=== PATIENT | female | born 1985 | race Caucasian/White ===

== ENCOUNTER 2021-03-19 12:12 | Emergency (ER) | payer OTHER ==
[~2021-03-19] VITALS: Ht 152.4 cm; Wt 98.1 kg
[2021-03-19 12:37] VITALS: BP 152/108
--- NOTE | 2021-03-19 12:42 | PHYS DOC ---
Adult General Chief Complaint Chief Complaint: ABDOMINAL PAIN HPI HPI Patient is a 36-year-old female presenting for left lower quadrant pain. Patient was seen at our [place] urgent care upstairs and had work-up that consisted of urinalysis and negative test. She has history of known ovarian cysts none of which have ruptured in the past. She is concerned it might be recurrent pain. Patient was given Toradol shot and antiemetics with complete resolution of pain and plans were made for her to obtain a pelvic ultrasound. There were issues with insurance approving her nonemergent pelvic ultrasound and so, it was recommended she come down to the ER to see if we would do it. On evaluation, patient asymptomatic Review of Systems Review of Systems Fourteen body systems of review of systems have been reviewed. See HPI for pertinent positives and negative responses, other otto all other systems are negative, non-pertinent or non-contributory Physical Exam Physical Exam Constitutional: Well developed, well nourished, no acute distress, non-toxic appearance. HENT: Normocephalic, atraumatic, bilateral external ears normal, oropharynx moist, no oral exudates, nose normal. Eyes: PERRLA, EOMI, conjunctiva normal, no discharge. Neck: Normal range of motion, no tenderness, supple, no stridor. Cardiovascular: Heart rate regular, sinus rhythm, no murmurs rubs or gallops Lungs & Thorax: Bilateral breath sounds clear to auscultation Abdomen: Bowel sounds normal, soft, left flank plain, no rebound or guarding present, no masses, no pulsatile masses. Nonsurgical abdomen, no peritoneal signs Skin: Warm, dry, no erythema, no rash. Back: No tenderness, no CVA tenderness. Extremities: No tenderness, no cyanosis, no clubbing, ROM intact, no edema. Neurologic: Alert and oriented X 3, grossly normal motor & sensory function, no focal deficits noted. Psychologic: Affect normal, judgement normal, mood normal. EKG EKG [] Radiology/Procedures Radiology/Procedures [] Heart Score C/O Chest Pain: No Risk Factors: Risk Factors: DM, Current or recent (<one month) smoker, HTN, HLP, family history of CAD, obesity. Risk Scores: Risk Factors: DM, Current or recent (<one month) smoker, HTN, HLP, family history of CAD, obesity. Course & Med Decision Making Course & Med Decision Making ABCs unremarkable. I disclosed entirety of ER findings and discussed most likely diagnosis of left-sided abdominal pain of unknown etiology. Other diagnoses were discussed with patient such as ruptured ovarian cyst, ovarian torsion and other intra-abdominal abnormalities but all deemed less likely causes of miller ryder's presentation. Patient well-appearing, ambulatory, hemodynamically stable and asymptomatic on arrival. I discussed limited utility in performing nonemergent ultrasound in ER setting and patient agreed. As such, original plan of care for nonemergent outpatient ultrasound discussed at length with need for close outpatient follow-up to review today's ER visit stressed. Strict return precautions were also discussed at length with good understanding by patient. Patient voiced understanding and agreement with the plan. Patient knows to come back for repeat evaluation if concerning signs or symptoms present prior to outpatient follow-up. Hemodynamically stable, ambulatory and well-appearing at time of disposition. Dragon Disclaimer Dragon Disclaimer This electronic medical record was generated, in whole or in part, using a voice recognition dictation system. Departure Departure: Impression: Primary Impression: Abdominal pain Additional Impression: History of ovarian cyst Disposition: 01 HOME / SELF CARE / HOMELESS Condition: GOOD Referrals: PCP,UNKNOWN (PCP) Additional Instructions: You have been evaluated in the Emergency Department today for abdominal pain. Your evaluation was not suggestive of any emergent condition requiring medical intervention at this time. However, some abdominal problems make take more time to appear. Therefore, it is important for you to watch for any new symptoms or worsening of your current condition. Your vitals and physical examination were nonconcerning for any emergent or surgical issues. I agree with previous guidance for close outpatient follow-up and nonemergent pelvic ultrasound to be performed Return to the Emergency Department if you experience worsening pain, persistent fevers greater than 100.4, recurrent vomiting, blood in vomit, blood in stool, dark tarry stool, chest pain, difficulty breathing, or any other concerning symptoms. Problem Qualifiers MARKOS HOFF DO Mar 19, 2021 12:42
== END 2021-03-19 12:47 | disposition home or self-care (01) ==
LOC: ER 12:12
DX: R10.32 Left lower quadrant pain (principal)
CPT/HCPCS: 99281; 99283

== ENCOUNTER 2021-04-15 16:25 | Emergency (ER) | payer OTHER ==
[~2021-04-15] VITALS: Ht 152.4 cm; Wt 98.1 kg
[2021-04-15 16:36] VITALS: BP 136/81
--- NOTE | 2021-04-15 16:58 | PHYS DOC ---
Past History Past Surgical History: No Surgical History (KHAI MORRELL DO) Alcohol Use: None (KHAI MORRELL DO) General Adult EDM: Chief Complaint: FLANK PAIN-abdomen pain HPI: HPI: 36-year-old female presents with left-sided abdominal pain. She has been having pain today and yesterday. She states it is tender to palpation. The pain is a mild to moderate cramping sensation. No skin findings. No nausea, vomiting. She denies dysuria, urinary frequency, change in vaginal discharge, constipation, or diarrhea. She had pain similar to this about a month ago and was evaluated for possible ovarian cyst. Her ultrasound was negative at that time. Her pain went away on its own. No history of abdominal surgery other than two C-sections. She denies fever or chills. (KHAI MORRELL DO) Review of Systems: Review of Systems: Constitutional: Denies fever or chills Eyes: Denies change in visual acuity HENT: Denies nasal congestion or sore throat Respiratory: Denies cough or shortness of breath Cardiovascular: Denies chest pain or edema GI: Left-sided abdominal pain. Denies nausea, vomiting, bloody stools or diarrhea : Denies dysuria Musculoskeletal: left flank pain Integument: Denies rash Neurologic: Denies headache, focal weakness or sensory changes Endocrine: Denies polyuria or polydipsia Lymphatic: Denies swollen glands Psychiatric: Denies depression or anxiety (KHAI MORRELL DO) Current Medications: Current Meds: Current Medications Medications (Trade) Dose Ordered Sig/Surekha Start Time Stop Time Status Last Admin Dose Admin Sodium Chloride 1,000 ml @ 1,000 mls/hr 1X ONCE 04/15/21 17:00 04/15/21 17:59 UNV (KHAI MORRELL DO) Allergies: Allergies: Allergies Coded Allergies Type Severity Reaction Last Updated Verified No Known Drug Allergies 03/19/21 No (KHAI MORRELL DO) Physical Exam: PE: Constitutional: Well developed, well nourished, morbidly obese, no acute distress, non-toxic appearance. [] HENT: Normocephalic, atraumatic, bilateral external ears normal, oropharynx moist, no oral exudates, nose normal. [] Eyes: PERRLA, EOMI, conjunctiva normal, no discharge. [] Neck: Normal range of motion, no tenderness, supple, no stridor. [] Cardiovascular: Heart rate regular rhythm, no murmur [] Lungs & Thorax: Bilateral breath sounds clear to auscultation [] Abdomen: Bowel sounds normal, soft, left-sided tenderness, no masses, no pulsatile masses. [] Skin: Warm, dry, no erythema, no rash. [] Back: No tenderness, mild left CVA tenderness. [] Extremities: No tenderness, no cyanosis, no clubbing, ROM intact, no edema. [] Neurologic: Alert and oriented X 3, normal motor function, normal sensory functi on, no focal deficits noted. [] Psychologic: Affect normal, judgement normal, mood normal. [] (KHAI MORRELL DO) Current Patient Data: Vital Signs: Vital Signs Date Time Temp Pulse Resp B/P (MAP) Pulse Ox O2 Delivery O2 Flow Rate FiO2 04/15/21 16:36 97.9 102 18 136/81 (99) 95 (KHAI MORRELL DO) Labs: CBC hemoglobin white count 8.1 hemoglobin 13.2 platelets 267 electrolytes sodium 139 potassium 3.9102 chloride 24 CO2 10 BUN 0.7 creatinine glucose 105 UA negative see formal report when available (STEVEN GUERRERO MD) EKG: EKG: [] (KHAI MORRELL DO) Radiology/Procedures: Radiology/Procedures: [] (KHAI MORRELL DO) Radiology/Procedures: [place] [address] IMAGING REPORT Signed PATIENT: SULLY DINERO AACCOUNT: [id number] : 1985 LOCATION: ER AGE: 36 SEX: F EXAM STATUS: REG ER ORD. PHYSICIAN: KHAI MORRELL DO REASON: left flank pain PROCEDURE: CT ABDOMEN PELVIS WO CONTRAST Exam Date: 04/15/2021 5:[address] ABDOMEN+PELVIS WO Indication: Reason: left flank pain / Spl. Instructions: / History: . TECHNIQUE: CT examination of the abdomen and pelvis was performed without oral or intravenous contrast. One or more of the following dose reduction techniques were utilized: *Automated exposure control (AEC) *Adjustment of mA and/or kV according to patient size *Use of iterative reconstruction technique *CT scan done according to ALARA, or ALARA/IMAGE GENTLY FINDINGS: The visualized lung bases are clear. There is diffuse fatty infiltration of the liver. The liver, gallbladder, spleen, pancreas, and adrenal glands are otherwise normal. The kidneys are normal bilaterally. No hydronephrosis or hydroureter is seen. No urinary tract calculi are seen. Urinary bladder is normal in appearance. There is no bowel obstruction or inflammation. The appendix is normal. No significant atherosclerotic calcifications are seen. No lymphadenopathy or ascites is seen. Degenerative changes are seen in the spine. IMPRESSION: Normal appearance of the kidneys and bladder. No hydronephrosis or hydroureter. No urinary tract calculi. Electronically signed by: Joni Villegas MD (04/15/2021 5:56 PM) [facility] DICTATED AND SIGNED BY: JONI VILLEGAS MD DATE: 04/15/211749 CC: KHAI MORRELL DO; PCP,UNKNOWN ~MTH0 0 (STEVEN GUERRERO MD) Heart Score: C/O Chest Pain: N/A Risk Factors: Risk Factors: DM, Current or recent (<one month) smoker, HTN, HLP, family history of CAD, obesity. Risk Scores: Score 0 - 3: 2.5% MACE over next 6 weeks - Discharge Home Score 4 - 6: 20.3% MACE over next 6 weeks - Admit for Clinical Observation Score 7 - 10: 72.7% MACE over next 6 weeks - Early Invasive Strategies (KHAI MORRELL DO) Course & Med Decision Making: Course & Med Decision Making Pertinent Labs and Imaging studies reviewed. (See chart for details) The patient's labs are pending. Her CT scan is pending. I am signing the patient out to Dr. Guerrero at 1748. He will determine the patient's final disposition. [] (KHAI MORRELL DO) Course & Med Decision Making See Dr. Morrell chart for details prior shift change.. Recently moved from [place] to [place], she is dependent. No family history of ulcerative colitis or other forms of colitis. No history of irritable bowel syndrome. Did have an uncle that had hepatitis and alcohol l iver disease. No specific ill contacts. No history immunosuppression. Normally healthy. Has been assigned to [place] no recent travel overseas. Impression: 1. Abdomen and Lt flank Pain 2. Constipation Pt. to stay on clear fluid diet x 48 hrs. No solids or milk products. Must allow bowel rest. Follow up with primary and review ED work up and any pending labs. Return if if any concerns. (STEVEN GUERRERO MD) Tnoie Disclaimer: Tonie Disclaimer: This electronic medical record was generated, in whole or in part, using a voice recognition dictation system. (KHAI MORRELL DO) Departure Departure: Referrals: PCP,UNKNOWN (PCP) Tonie Disclaimer This chart was dictated in whole or in part using Voice Recognition software in a busy, high-work load, and often noisy Emergency Department environment. It may contain unintended and wholly unrecognized errors or omissions. (STEVEN GUERRERO MD) KHAI MORRELL DO Apr 15, 2021 16:58 STEVEN GUERRERO MD Apr 15, 2021 18:21
[2021-04-15] MEDS ORDERED: IV NORMAL SALINE 1,000ML 1,000 ML IV ONE (17:00)
[2021-04-15] MEDS ORDERED: IOHEXOL 300 MG/ML 75 ML VIAL. IV ONE (17:15)
[2021-04-15] MEDS ORDERED: CONTRAST GIVEN. MC PRN (17:15)
[2021-04-15 17:45] LABS: U PREG PATIENT NEGATIVE (NEG)
[2021-04-15 17:52] LABS: BASO # 0.1 x10^3/uL (0.0-0.2); BASO % 1 % (0-3); EOS # 0.2 x10^3/uL (0.0-0.7); EOS % 2 % (0-3); HEMATOCRIT 38.8 % (36.0-47.0); HEMOGLOBIN 13.2 g/dL (12.0-15.5); LYMPH # 3.3 x10^3/uL (1.0-4.8); LYMPH % 41 % (24-48); MEAN CORPUSCULAR HEMOGLOBIN 30 pg (25-35); MEAN CORPUSCULAR HGB CONC 34 g/dL (31-37); MEAN CORPUSCULAR VOLUME 88 fL (79-100); MONO # 0.5 x10^3/uL (0.0-1.1); MONO % 7 % (0-9); NEUT % 49 % (31-73); PLATELET COUNT 267 x10^3/uL (140-400); RED BLOOD COUNT 4.42 x10^6/uL (3.50-5.40); WHITE BLOOD COUNT 8.1 x10^3/uL (4.0-11.0)
[2021-04-15 17:57] LABS: CALCIUM 9.5 mg/dL (8.5-10.1); CREATININE 0.7 mg/dL (0.6-1.0); GFR 95.2; POTASSIUM 3.9 mmol/L (3.5-5.1)
[2021-04-15 17:58] LABS: BILIRUBIN,URINE NEG (NEG); CLARITY,URINE HAZY; COLOR,URINE YELLOW; GLUCOSE,URINE NEG (NEG); NITRITE,URINE NEG (NEG); RBC,URINE 0 /HPF (0-2); UROBILINOGEN,URINE 0.2 mg/dL (0.2 mg/dL)
--- NOTE | 2021-04-15 17:58 | RAD ---
Exam Date: 04/15/2021 5:[address] ABDOMEN+PELVIS WO Indication: Reason: left flank pain / Spl. Instructions: / History: . TECHNIQUE: CT examination of the abdomen and pelvis was performed without oral or intravenous contra st. One or more of the following dose reduction techniques were utilized: *Automated exposure control (AEC) *Adjustment of mA and/or kV according to patient size *Use of iterative reconstruction technique *CT scan done according to ALARA, or ALARA/IMAGE GENTLY FINDINGS: The visualized lung bases are clear. There is diffuse fatty infiltration of the liver. The liver, gallbladder, spleen, pancreas, and adrenal glands are otherwise normal. The kidneys are normal bilaterally. No hydronephrosis or hydroureter is seen. No urinary tract calc radha are seen. Urinary bladder is normal in appearance. There is no bowel obstruction or inflammation. The appendix is normal. No significant atherosclerotic calcifications are seen. No lymphadenopathy or ascites is seen. Degenerative changes are seen in the spine. IMPRESSION: Normal appearance of the kidneys and bladder. No hydronephrosis or hydroureter. No urinary tract ca lculi. Electronically signed by: Selvin Villegas MD (04/15/2021 5:56 PM) [facility]
[2021-04-15 17:59] LABS: BACTERIA,URINE MOD /HPF (0-FEW); SQUAMOUS EPITHELIAL CELL,UR MOD /LPF
[2021-04-15 18:03] LABS: ALBUMIN 3.8 g/dL (3.4-5.0); ALBUMIN/GLOBULIN RATIO 0.9 (1.0-1.7); TOTAL BILIRUBIN 0.3 mg/dL (0.2-1.0); TOTAL PROTEIN 8.1 g/dL (6.4-8.2)
[2021-04-15] MEDS ORDERED: MAGNESIUM HYDROXIDE 2,400 MG/30 ML ORAL.SUSP. PO ONE (18:30)
== END 2021-04-15 18:51 | disposition home or self-care (01) ==
LOC: ER 16:25
DX: K59.00 Constipation, unspecified (principal); R10.9 Unspecified abdominal pain
CPT/HCPCS: 36415; 74176; 80053; 81001; 81025; 85025; 87086; 96360; 99284; J7030